=== PATIENT | female | born 1955 | race Caucasian/White ===

== ENCOUNTER 2019-02-17 10:24 | Inpatient (IN) | payer OTHER ==
[~2019-02-17] VITALS: Ht 160 cm; Wt 91.6 kg
--- NOTE | 2019-02-17 10:50 | NUR ---
PT BORUGHT IN BY FAMILY FOR CHEST DISCOMFORT ACROSS CHEST SINCE 2329 LAST NIGHT NO PAIN NOTED UPON PALITATION ALL BOWEL SOUND WNL PT DENIES NAUSEA, VOMITING, SHORTNESS OF BREATH AND SWEATING. PT STATES SHE HAS A HISTORY OF CARDIC SURGERY PT APPEARS CALM WITH OUT GRIMMACE AWAITING MD EVALUATION PLACED IN HOSPITAL GOWN
[2019-02-17] MEDS ORDERED: MORPHINE SULFATE INJ 4 MG/ML DISP.SYRIN ONE (11:13)
[2019-02-17] MEDS ORDERED: MAG HYDROX/AL HYDROX/SIMETH 30 ML UDC ONE (11:15)
[2019-02-17] MEDS ORDERED: ONDANSETRON HCL/PF 4 MG/2 ML VIAL ONE (11:15)
[2019-02-17 11:21] LABS: BASOPHILS % (AUTO) 0.5 % (0.0-2.0); EOSINOPHILS % (AUTO) 0.1 % (0.0-6.0); HEMATOCRIT 48 % (33-45); HEMOGLOBIN 16.3 g/dL (11.5-14.8); LYMPHOCYTES # (AUTO) 1.9 /CMM (0.8-4.8); MEAN CORPUSCULAR HGB CONC 34 g/dl (31.0-36.0); MEAN CORPUSCULAR VOLUME 84 fL (82-100); MONOCYTES # (AUTO) 0.3 /CMM (0.1-1.30); MONOCYTES % (AUTO) 3.8 % (2.0-12.0); NEUTROPHILS # (AUTO) 6.6 /CMM (1.8-8.9); NEUTROPHILS % (AUTO) 74.6 % (43.0-81.0); PLATELET COUNT (AUTO) 160 /CMM (150-450); RED BLOOD CELL COUNT(AUTO) 5.65 MIL/uL (4.0-5.2); WHITE BLOOD COUNT (AUTO) 8.9 K/uL (4.3-11.0)
[2019-02-17] MEDS ORDERED: ONDANSETRON HCL/PF 4 MG/2 ML VIAL IVP ONE (11:30)
[2019-02-17] MEDS ORDERED: IV NS 0.9% 500 ML BAG IV ONE (11:30)
[2019-02-17] MEDS ORDERED: MAG HYDROX/AL HYDROX/SIMETH 30 ML UDC PO ONE (11:30)
[2019-02-17] MEDS ORDERED: MORPHINE SULFATE INJ 2 MG/ML DISP.SYRIN IV ONE (11:30)
[2019-02-17 11:36] LABS: ALBUMIN 3.8 g/dL (3.4-5.0); BILIRUBIN,DIRECT 0.1 mg/dL (0.0-0.2); BILIRUBIN,TOTAL 0.6 mg/dL (0.2-1.0); CALCIUM, SERUM 9.1 mg/dL (8.5-10.1); CREATININE 0.5 mg/dL (0.6-1.3); TOTAL PROTEIN, SERUM 8.1 g/dL (6.4-8.2)
--- NOTE | 2019-02-17 12:22 | NUR ---
ORE SAMPLER [employer] DOCTOR PAGED
--- NOTE | 2019-02-17 12:25 | NUR ---
CALLED NURSING SUP FOR TELE BED
[2019-02-17] MEDS ORDERED: ERGO500040 PO (12:31)
[2019-02-17] MEDS ORDERED: ATEN25TA PO (12:31)
[2019-02-17] MEDS ORDERED: HYDR-4076 PO (12:31)
[2019-02-17] MEDS ORDERED: LOSA1TAB42 PO (12:31)
[2019-02-17] MEDS ORDERED: ASPI-605 PO (12:31)
[2019-02-17] MEDS ORDERED: SERT25TA5 PO (12:31)
[2019-02-17] MEDS ORDERED: EMPA25TA PO (12:31)
[2019-02-17] MEDS ORDERED: GABA-532 PO (12:31)
[2019-02-17] MEDS ORDERED: AMLO5TAB9 PO (12:31)
[2019-02-17] MEDS ORDERED: PANT40TA4 PO (12:33)
[2019-02-17] MEDS ORDERED: FOLI1TAB16 PO (12:33)
[2019-02-17] MEDS ORDERED: ATOR40TA PO (12:33)
--- NOTE | 2019-02-17 13:02 | NUR ---
PAGED EPIC FOREIGN LEGAL CONSULTANT DOCTOR
[2019-02-17] MEDS ORDERED: NITROGLYCERIN PACKET 1 GM PACKET ONE (14:00)
[2019-02-17] MEDS ORDERED: ASPIRIN 325 MG TABLET PO ONE (14:00)
[2019-02-17] MEDS ORDERED: ASPIRIN 325 MG TABLET ONE (14:01)
[2019-02-17] MEDS: NITROGLYCERIN 0.4 MG/HR PATCH.TD24 TD SCH ×2 (14:04→14:06)
--- NOTE | 2019-02-17 14:04 | NUR ---
PT WENT TO BATH ROOM CAME BACK C/O CHEST PAIN MD MADE AWARE GIVEN NTG PATCH AND ASPARIN 325 WILL CONTINUE TO MONITOR
--- NOTE | 2019-02-17 14:47 | NUR ---
RECIEVED BED 328-2 REPORT WILL BE GIVEN TO MILO
--- NOTE | 2019-02-17 15:40 | NUR ---
TELE/COMPUTER PROGRAMMING SUPERVISOR PATIENT ADMITTED FROM ER IN STABLE CONDITION TRANSFERRED VIA STRETCHER ACCOMPANIED BY RN AND FAMILY MEMBER. A/O X 4, NO SIGNS OF ACUTE DISTRESS. NO COMPLAIN OF PAIN OR DISCOMFORT. ADMITTING DX NSTEMI R/O AL. UPON ADMISSION TROP NOTED 3.[address] MORROW AT BEDSIDE SEEN AND EXAMINED THE PATIENT AND MADE AWARE REGARDING ELEVATED TROP PER DR MORROW REPEAT TROP. SKIN CONDITION INTACT. AMBULATE WITH STAND BY ASSIST, BRP. ON TELE MONITOR NOTED WITH SR WITH RATE OF 80. ALL NEEDS ATTENDED TO AT THIS TIME. CALL LIGHT WITHIN REACH. WILL CONTINUE TO MONITOR TO ENSURE SAFETY. DR EFREN MILLER PAGED FOR ADMITTING ORDERS.
[2019-02-17 15:59] VITALS: BP 143/76
[2019-02-17 16:00] VITALS: BP 149/98
[2019-02-17] MEDS ORDERED: HYDROCODONE/APAP 5/325MG 1 EACH TABLET PO PRN (16:00)
[2019-02-17] MEDS ORDERED: ZOLPIDEM TARTRATE 5 MG TABLET PO PRN (16:00)
[2019-02-17] MEDS ORDERED: MAGNESIUM HYDROXIDE 30 ML UDC PO PRN (16:00)
[2019-02-17] MEDS ORDERED: MAG HYDROX/AL HYDROX/SIMETH 30 ML UDC PO PRN (16:00)
[2019-02-17] MEDS ORDERED: ACETAMINOPHEN 325 MG TABLET PO PRN (16:00)
[2019-02-17] MEDS ORDERED: Z GUARD REMEDY 2 OZ OINT TP PRN (16:00)
[2019-02-17] MEDS ORDERED: ONDANSETRON HCL/PF 4 MG/2 ML VIAL IVP PRN (16:00)
[2019-02-17] MEDS ORDERED: VALSARTAN 80 MG TABLET PO SCH (16:00)
[2019-02-17] MEDS ORDERED: MORPHINE SULFATE INJ 2 MG/ML DISP.SYRIN IV PRN (16:00)
[2019-02-17 16:27] LABS: THYROID STIMULATING HORMONE 1.67 uIU/mL (0.358-3.74)
[2019-02-17 16:39] LABS: MAGNESIUM 1.8 mg/dL (1.8-2.4); PHOSPHORUS 3.6 mg/dL (2.5-4.9)
[2019-02-17] MEDS: ATORVASTATIN 40 MG TABLET PO SCH (16:53)
[2019-02-17] MEDS: hydrALAZINE HCL 50 MG TABLET PO SCH (16:54)
--- NOTE | 2019-02-17 17:44 | NUR ---
TELE/RN SPOKE WITH NURSING STUNT MAN AND RADIOLOGY DEPT ROSALINDA AND VERIFY IF THE CTA WILL BE DONE TODAY SINCE FAMILY WANTS TO KNOW PER BOTH NURSING STUNT MAN AND ROSALINDA, IT MIGHT NOT HAPPEN TODAY, MOST LIKELY WILL BE TOMORROW MORNING. FAMILY NOTIFIED.
[2019-02-17] MEDS: METOPROLOL TARTRATE 50 MG TABLET PO SCH ×2 (18:00→18:52)
--- NOTE | 2019-02-17 18:00 | NUR ---
TELE/RN HELD LOPRESSOR PER RADIOLOGY IF POSSIBLE CTA PROCEDURE HAPPENS TODAY WILL ADMINISTER LOPRESSOR IN PROCEDURE ROOM
--- NOTE | 2019-02-17 18:09 | NUR ---
TELE/RN SPOKE WITH DR MORROW AND NOTIFIED PATIENT STILL COMPLAIN OF MILD CHEST PAIN, UPON TALKING NOTED WITH SOB OXYGEN SAT 91% RA, ALSO NOTIFIED PER LAB SECOND TROP CRITICAL 11.05, AND PER RADIOLOGY AND NRSG SUP UNABLE TO PERFORM CTA TODAY, MOST LIKELY WILL HAPPEN TOMORROW. PER DR MORROW NOT ACCEPTABLE, WILL TRY TO TRANSFER PATIENT OUT AND START 2L OXYGEN VIA NC. CHARGE NURSE AND FAMILY NOTIFIED.
--- NOTE | 2019-02-17 18:40 | NUR ---
TELE/RN CLOSING NOTE PATIENT IN BED IN STABLE CONDITION. A/O X 3. NO SIGNS OF ACUTE DISTRESS AT THIS TIME. ON OXYGEN VIA NC AT 2LPM TOLERATING WELL. HOB ELEVATED, COMPLAIN OF MILD CHEST PAIN. ALL NEEDS ATTENDED TO AT THIS TIME. CALL LIGHT WITHIN REACH. WILL ENDORSE TO NEXT SHIFT FOR CONTINUITY OF CARE.
[2019-02-17 20:00] VITALS: BP 128/128
[2019-02-17] MEDS: ENOXAPARIN SODIUM 100 MG/ML DISP.SYRIN SQ SCH (20:26)
--- NOTE | 2019-02-17 20:43 | NUR ---
TELE/RN ON INITIAL SHIFT ROUNDAT 1929, RECEIVED PATIENT LYING ON BED AWAKE, ALERT, ORIENTED, COMFORTABLE, NO C/O PAIN AT THIS TIME, NO DISTRESS NOTED, CALL LIGHT IN REACH. WILL MONITOR.
[2019-02-17] MEDS ORDERED: ATORVASTATIN 40 MG TABLET PO SCH (22:00)
[2019-02-18] VITALS: BP 125/59
[2019-02-18] MEDS: METOPROLOL TARTRATE 50 MG TABLET PO SCH ×3 (00:16→12:00)
--- NOTE | 2019-02-18 00:18 | NUR ---
TELE/RN TROP 13.462, PATIENT IS ASYMPTOMATIC, NO C/O CHEST PAIN, AOX4, VITAL SIGNS ARE STABLE, CALLED AND SPOKE TO DR. ESPINOZA WHO ASKED ME TO CALL DR. MORROW FOR ORDERS. CALLED AND SPOKE TO DR. MORROW, NO ORDERS RECEIVED. SPOKE TO THE DAUGHTER (WHO CALLED THE STATION), MADE HER AWARE. WILL CONTINUE TO MONITOR THE PATIENT.
[2019-02-18 04:00] VITALS: BP 134/78
--- NOTE | 2019-02-18 06:16 | NUR ---
TELE/RN PATIENT IS AWAKE, ALERT, ORIENTED, COMFORTABLE, NO C/O PAIN, NO DISTRESS NOTED, ALL NEEDS ATTENDED AT THIS TIME, WILL CONTINUE TO MONITOR.
[2019-02-18 06:22] LABS: BASOPHILS % (AUTO) 0.2 % (0.0-2.0); EOSINOPHILS % (AUTO) 0.1 % (0.0-6.0); HEMATOCRIT 44 % (33-45); LYMPHOCYTES # (AUTO) 2.3 /CMM (0.8-4.8); LYMPHOCYTES % (AUTO) 21.6 % (20.0-44.0); MEAN CORPUSCULAR HGB CONC 34 g/dl (31.0-36.0); MEAN CORPUSCULAR VOLUME 84 fL (82-100); MONOCYTES # (AUTO) 0.7 /CMM (0.1-1.30); NEUTROPHILS # (AUTO) 7.5 /CMM (1.8-8.9); NEUTROPHILS % (AUTO) 71.1 % (43.0-81.0); PLATELET COUNT (AUTO) 162 /CMM (150-450); RED BLOOD CELL COUNT(AUTO) 5.22 MIL/uL (4.0-5.2); WHITE BLOOD COUNT (AUTO) 10.5 K/uL (4.3-11.0)
[2019-02-18 06:43] LABS: CALCIUM, SERUM 8.9 mg/dL (8.5-10.1); CREATININE 0.5 mg/dL (0.6-1.3); MAGNESIUM 1.9 mg/dL (1.8-2.4); PHOSPHORUS 3.7 mg/dL (2.5-4.9); POTASSIUM 3.8 mmol/L (3.5-5.1)
[2019-02-18 06:59] LABS: THYROID STIMULATING HORMONE 1.009 uIU/mL (0.358-3.74)
--- NOTE | 2019-02-18 07:20 | NUR ---
TELE/RN OPENING NOTE THE PATIENT ALERT AND ORIENTED X4. RECEIVING OXYGEN AT 2L/MIN VIA NASAL CANULA AND DENIES SOB. RESPIRATION REGULAR AND UNLABORED. DENIES CHAT PAIN OR ANY DISCOMFORT. EXTERNAL TELE BOX READING IS SR 73. RIGHT HAND G 20 PATENT AND SALINE LOCKED. BED LOW AND LOCKED. SIDE RAILS UP X3. CALL LIGHT WITHIN REACH. WILL CONTINUE TO MONITOR.
[2019-02-18] MEDS ORDERED: PANTOPRAZOLE 40 MG TABLET.DR PO SCH (07:30)
[2019-02-18 08:00] VITALS: BP 125/73
[2019-02-18] MEDS ORDERED: Medication Not On Formulary EA (Empagliflozin (Jardiance) 25 MG) PO SCH (09:00)
[2019-02-18] MEDS ORDERED: ASPIRIN EC 81 MG TABLET.DR PO SCH (09:00)
[2019-02-18] MEDS ORDERED: AMLODIPINE BESYLATE 5 MG TABLET PO SCH (09:00)
[2019-02-18] MEDS: ATORVASTATIN 40 MG TABLET PO SCH (09:00)
[2019-02-18] MEDS ORDERED: ATENOLOL 25 MG TABLET PO SCH (09:00)
[2019-02-18] MEDS ORDERED: ERGOCALCIFEROL (VITAMIN D 2) 50,000 UNIT CAPSULE PO SCH (09:00)
[2019-02-18] MEDS ORDERED: hydrALAZINE HCL 25 MG TABLET PO SCH (09:00)
[2019-02-18] MEDS ORDERED: Medication Not On Formulary EA (Losartan/Hydrochlorothiazide (Losartan-Hctz 100-12.5 Mg PO SCH (09:00)
[2019-02-18] MEDS ORDERED: VALSARTAN 80 MG TABLET PO SCH (09:00)
[2019-02-18] MEDS ORDERED: LOSARTAN POTASSIUM 50 MG TABLET PO SCH (09:00)
[2019-02-18] MEDS: hydrALAZINE HCL 50 MG TABLET PO SCH ×2 (09:00→13:00)
[2019-02-18] MEDS ORDERED: SERTRALINE HCL 25 MG TABLET PO SCH (09:00)
[2019-02-18] MEDS ORDERED: FOLIC ACID 1 MG TABLET PO SCH (09:00)
[2019-02-18] MEDS ORDERED: GABAPENTIN 100 MG CAPSULE PO SCH (09:00)
[2019-02-18] MEDS: ENOXAPARIN SODIUM 100 MG/ML DISP.SYRIN SQ SCH (09:08)
[2019-02-18 13:00] VITALS: BP 139/67
--- NOTE | 2019-02-18 13:06 | NUR ---
TELE/RN NOTE BLOOD SUGAR 141. NO COVERAGE. THE PATIENT IS NPO FOR CTA IN [facility]. LOPRESSOR AND APRESOLINE ARE NOT ADMINISTERED DUE TO PATIENT BEING NPO. MARTINA MILLER IS AWARE.
--- NOTE | 2019-02-18 14:25 | NUR ---
TELE/RN NOTE THE PATIENT IS ALERT AND ORIENTED X4. DENIES CHEST PAIN OR ANY OTHER DISCOMFORT. RECEIVING OXYGEN AT 2L/MIN VIA NASAL CANNULA AND SATURATION IS AT 98%. DENIES SOB. RESPIRATION REGULAR AND UNLABORED. RIGHT HAND G 20 PATENT AND SALINE LOCKED. TRANSFER/DISCHARGE EDUCATION PROVIDED. REPORT GIVEN TO RECEIVING NURSE BRANDI. PATIENT IS PICKED UP VIA AMBULANCE. LEFT THE HOSPITAL IN STABLE CONDITION.
== END 2019-02-18 20:45 | disposition short-term general hospital (02) | DRG 190 ==
LOC: ER 10:24 → TELE 14:59
PROVIDERS: ADMIT Hospitalist; ATTEND Hospitalist
DX: I21.4 Non-ST elevation (NSTEMI) myocardial infarction (principal); E11.9 Type 2 diabetes mellitus without complications; E66.9 Obesity, unspecified; I10 Essential (primary) hypertension; Z90.710 Acquired absence of both cervix and uterus; Z95.5 Presence of coronary angioplasty implant and graft; Z79.82 Long term (current) use of aspirin; K80.20 Calculus of gallbladder without cholecystitis without obstruction; E78.5 Hyperlipidemia, unspecified; Z68.35 Body mass index [BMI] 35.0-35.9, adult
CPT/HCPCS: 36415; 71045-TC; 80048-TC; 80061-TC; 80076-TC; 82962-TC; 83690-TC; 83735-TC; 84100-TC; 84439-TC; 84443-TC; 84484-TC; 85025-TC; 85730-TC; 87081-TC; 93307-TC; G0378; J1650; J2270; J2405; J7040

== ENCOUNTER 2019-11-08 14:51 | Emergency (ER) | payer OTHER ==
[~2019-11-08] VITALS: Ht 160 cm; Wt 92.5 kg
[~2019-11-08 14:51] MED LIST: AMLO5TAB9 PO; ASPI-605 PO; ATEN25TA PO; ATOR40TA PO; EMPA25TA PO; ERGO500040 PO; FOLI1TAB16 PO; GABA-532 PO; HYDR-4076 PO; LOSA1TAB42 PO; PANT40TA4 PO; SERT25TA5 PO
[2019-11-08 15:02] VITALS: BP 147/76
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
--- NOTE | 2019-11-08 15:22 | NUR ---
PT GOING TO RADIOLOGY VIA .
--- NOTE | 2019-11-08 15:35 | NUR ---
PT RETURNED FROM RADIOLOGY AND AMBULATED FROM THE TO THE FAST TRACK CHAIR WITH A STEADY GAIT.
== END 2019-11-08 16:14 | disposition home or self-care (01) ==
LOC: ER 14:55
DX: S29.011A Strain of muscle and tendon of front wall of thorax, initial encounter (principal); S09.8XXA Other specified injuries of head, initial encounter; R51 Headache; I10 Essential (primary) hypertension; E11.9 Type 2 diabetes mellitus without complications; Z79.82 Long term (current) use of aspirin; Z79.899 Other long term (current) drug therapy; V49.59XA Passenger injured in collision with other motor vehicles in traffic accident, initial encounter; Y93.89 Activity, other specified; Y92.488 Other paved roadways as the place of occurrence of the external cause; Y99.8 Other external cause status
CPT/HCPCS: 70450-TC; 70490-TC; 71045-TC

== ENCOUNTER 2023-05-16 14:03 | Emergency (ER) | payer MEDICARE, OTHER ==
[~2023-05-16] VITALS: Ht 157.5 cm; Wt 91.6 kg
[~2023-05-16 14:03] MED LIST changes: +AMLO-212 PO; -AMLO5TAB9 PO; -PANT40TA4 PO; +PANT40TA49 PO
[2023-05-16 14:55] LABS: BASOPHILS % (AUTO) 0.4 % (0.0-2.0); EOSINOPHILS # (AUTO) 0.1 K/uL (0.0-0.7); EOSINOPHILS % (AUTO) 1.6 % (0.0-6.0); HEMATOCRIT 48 % (33-45); HEMOGLOBIN 16.1 g/dL (11.5-14.8); LYMPHOCYTES # (AUTO) 2.5 K/uL (0.8-4.8); LYMPHOCYTES % (AUTO) 38.6 % (20.0-44.0); MEAN CORPUSCULAR HEMOGLOBIN 28 PG (26.0-33.0); MEAN CORPUSCULAR HGB CONC 33 g/dl (31.0-36.0); MEAN CORPUSCULAR VOLUME 84 fL (82-100); MONOCYTES # (AUTO) 0.4 K/uL (0.1-1.30); MONOCYTES % (AUTO) 6.4 % (2.0-12.0); NEUTROPHILS # (AUTO) 3.4 K/uL (1.8-8.9); PLATELET COUNT (AUTO) 138 K/uL (150-450); RED BLOOD CELL COUNT(AUTO) 5.74 MIL/uL (4.0-5.2); RED CELL DISTRIBUTION WIDTH 14.3 % (11.5-15.0); WHITE BLOOD COUNT (AUTO) 6.4 K/uL (4.3-11.0)
[2023-05-16 15:01] LABS: C-REACTIVE PROTEIN 0.6 mg/dL (0.0-0.9)
[2023-05-16 15:03] LABS: CALCIUM, SERUM 9.5 mg/dL (8.5-10.1); CREATININE 0.9 mg/dL (0.6-1.3); POTASSIUM 3.8 mmol/L (3.5-5.1)
[2023-05-16 15:10] LABS: ERYTHROCYTE SEDIMENTATION RATE 13 MM/HR (0-30)
[2023-05-16] MEDS ORDERED: IOHEXOL-300 100 ML VIAL IV ONE (15:29)
[2023-05-16] MEDS ORDERED: IV NS 0.9% 250 ML IV ONE (15:29)
[2023-05-16] MEDS ORDERED: IV NS 0.9% 1,000 ML IV ONE (15:30)
[2023-05-16] MEDS ORDERED: diphenhydrAMINE HCL 50 MG/ML VIAL ONE (15:40)
[2023-05-16] MEDS ORDERED: methylPREDNISolone SOD SUCC 125 MG/2ML VIAL ONE (15:40)
[2023-05-16] MEDS ORDERED: diphenhydrAMINE HCL 50 MG/ML VIAL IV ONE (16:00)
[2023-05-16] MEDS ORDERED: methylPREDNISolone SOD SUCC 125 MG/2ML VIAL IV ONE (16:00)
[2023-05-16 17:27] VITALS: BP 141/79; TEMP 98.6; O2SAT 100
== END 2023-05-16 17:28 | disposition home or self-care (01) ==
LOC: ER 14:08
DX: Z48.00 Encounter for change or removal of nonsurgical wound dressing (principal); I10 Essential (primary) hypertension; E11.9 Type 2 diabetes mellitus without complications; Z79.899 Other long term (current) drug therapy
CPT/HCPCS: 99285; 74177; 96374; 96361; 96375; 85025; 80048; 85652; 36415; 86140; J1200; J2930; J7030; J7050; Q9967

== ENCOUNTER 2023-08-10 16:20 | Emergency (ER) | payer MEDICARE, OTHER ==
[~2023-08-10] VITALS: Ht 154.9 cm; Wt 93.0 kg
[2023-08-10 16:52] LABS: BASOPHILS % (AUTO) 0.4 % (0.0-2.0); EOSINOPHILS # (AUTO) 0.2 K/uL (0.0-0.7); EOSINOPHILS % (AUTO) 2.3 % (0.0-6.0); HEMATOCRIT 49 % (33-45); HEMOGLOBIN 16.3 g/dL (11.5-14.8); LYMPHOCYTES # (AUTO) 2.7 K/uL (0.8-4.8); LYMPHOCYTES % (AUTO) 39.3 % (20.0-44.0); MEAN CORPUSCULAR HEMOGLOBIN 29 PG (26.0-33.0); MEAN CORPUSCULAR HGB CONC 33 g/dl (31.0-36.0); MEAN CORPUSCULAR VOLUME 86 fL (82-100); MONOCYTES # (AUTO) 0.4 K/uL (0.1-1.30); MONOCYTES % (AUTO) 6.1 % (2.0-12.0); NEUTROPHILS # (AUTO) 3.6 K/uL (1.8-8.9); NEUTROPHILS % (AUTO) 51.9 % (43.0-81.0); PLATELET COUNT (AUTO) 145 K/uL (150-450); RED BLOOD CELL COUNT(AUTO) 5.71 MIL/uL (4.0-5.2); RED CELL DISTRIBUTION WIDTH 13.5 % (11.5-15.0); WHITE BLOOD COUNT (AUTO) 6.9 K/uL (4.3-11.0)
[2023-08-10 17:03] LABS: CALCIUM, SERUM 9.5 mg/dL (8.5-10.1); CARBON DIOXIDE 22 mmol/L (21-32); CHLORIDE 102 mmol/L (98-107); CREATININE 0.7 mg/dL (0.6-1.3); GLUCOSE 253 mg/dL (74-106); POTASSIUM 3.7 mmol/L (3.5-5.1); SODIUM SERUM 137 mmol/L (136-145); UREA NITROGEN, BLOOD 16 mg/dL (7-18)
[2023-08-10 17:18] LABS: NT-PRO BNP 120 pg/mL (0-125)
[2023-08-10] MEDS ORDERED: Z GUARD REMEDY 4 OZ OINT TP PRN (18:00)
[2023-08-10] MEDS ORDERED: MAG HYDROX/AL HYDROX/SIMETH 30 ML UDC PO PRN (18:00)
[2023-08-10] MEDS ORDERED: ACETAMINOPHEN 325 MG TABLET PO PRN (18:00)
[2023-08-10] MEDS ORDERED: ONDANSETRON HCL/PF 4 MG/2 ML VIAL IVP PRN (18:00)
[2023-08-10] MEDS ORDERED: MAGNESIUM HYDROXIDE 30 ML UDC PO PRN (18:00)
[2023-08-10] MEDS ORDERED: ZOLPIDEM TARTRATE 5 MG TABLET PO PRN (18:00)
[2023-08-10] MEDS ORDERED: ASPIRIN 81 MG TAB.CHEW PO ONE (19:00)
[2023-08-10] MEDS ORDERED: ASPIRIN EC 81 MG TABLET.DR PO ONE (19:02)
[2023-08-10 19:08] VITALS: BP 145/88; TEMP 98.5; O2SAT 97
[2023-08-10] MEDS ORDERED: ATORVASTATIN 40 MG TABLET PO SCH (22:00)
[2023-08-11] MEDS ORDERED: PANTOPRAZOLE 40 MG TABLET.DR PO SCH (07:30)
[2023-08-11] MEDS ORDERED: GABAPENTIN 100 MG CAPSULE PO SCH (09:00)
[2023-08-11] MEDS ORDERED: SERTRALINE HCL 25 MG TABLET PO SCH (09:00)
[2023-08-11] MEDS ORDERED: LOSARTAN POTASSIUM 50 MG TABLET PO SCH (09:00)
[2023-08-11] MEDS ORDERED: HYDROCHLOROTHIAZIDE 25 MG TABLET PO SCH (09:00)
[2023-08-11] MEDS ORDERED: AMLODIPINE BESYLATE 5 MG TABLET PO SCH (09:00)
[2023-08-11] MEDS ORDERED: ATENOLOL 25 MG TABLET PO SCH (09:00)
[2023-08-11] MEDS ORDERED: hydrALAZINE HCL 25 MG TABLET PO SCH (09:00)
[2023-08-11] MEDS ORDERED: ASPIRIN EC 81 MG TABLET.DR PO SCH (09:00)
[2023-08-11] MEDS ORDERED: FOLIC ACID 1 MG TABLET PO SCH (09:00)
[2023-08-11] MEDS ORDERED: EMPAGLIFLOZIN 25 MG TABLET PO SCH (09:00)
[2023-08-14] MEDS ORDERED: ERGOCALCIFEROL (VITAMIN D 2) 50,000 UNIT CAPSULE PO SCH (09:00)
== END 2023-08-10 19:08 | disposition left against medical advice (07) ==
LOC: ER 16:25
DX: R07.89 Other chest pain (principal); I10 Essential (primary) hypertension; E11.9 Type 2 diabetes mellitus without complications; Z79.82 Long term (current) use of aspirin; Z79.899 Other long term (current) drug therapy
CPT/HCPCS: 36415; 71045-TC; 80048-TC; 83880; 84484-TC; 85025-TC; 93307-TC